=== PATIENT | male | born 1990 | race Caucasian/White ===

== ENCOUNTER 2017-02-07 01:14 | Emergency (ER) | payer SELFPAY ==
[2017-02-07] MEDS ORDERED: PROPOFOL INJ 200 MG/20 ML VIAL IV ONE (02:54)
--- NOTE | 2017-02-07 05:25 | ER Document Report ---
ED General - General Chief Complaint: Shoulder Injury Stated Complaint: POSSIBLE SHOULDER INJURY Notes: Patient is a 26-year-old male with past history of morbid obesity and a prior left shoulder dislocation who presents after dislocating his left shoulder. States that he was sleeping on a couch and woke up from sleep after apparently dislocating the shoulder. Does describe a constant, severe, throbbing pain to the left shoulder. States he is unable to perform range of motion and attempts at that worsen the pain. He has not tried anything for improvement of the pain. States this feels exactly the same as last time he dislocated his shoulder. He has not spoken to his primary care doctor regarding today's concerns. He denies any additional injuries or complaints. Denies any weakness or numbness in the affected left upper extremity. TRAVEL OUTSIDE OF THE [place] IN LAST 30 DAYS: No - Related Data Allergies/Adverse Reactions: No Known Allergies Allergy (Verified 02/07/17 01:28) Past Medical History - General Information source: Patient - Social History Smoking Status: Current Every Day Smoker Chew tobacco use (# tins/day): Yes Frequency of alcohol use: Occasional Drug Abuse: None Lives with: Family Family History: Reviewed & Not Pertinent Patient has suicidal ideation: No Patient has homicidal ideation: No Renal/ Medical History: Reports: Hx Kidney Stones. Denies: Hx Peritoneal Dialysis - Immunizations Hx Diphtheria, Pertussis, Tetanus Vaccination: Yes Review of Systems - Review of Systems Notes: Constitutional: Negative for fever. HENT: Negative for sore throat. Eyes: Negative for visual changes. Cardiovascular: Negative for chest pain. Respiratory: Negative for shortness of breath. Gastrointestinal: Negative for abdominal pain, vomiting or diarrhea. Genitourinary: Negative for dysuria. Musculoskeletal: Positive for left shoulder pain Skin: Negative for rash. Neurological: Negative for headaches, weakness or numbness. 10 point ROS negative except as marked above and in HPI. Physical Exam - Vital signs Vitals: Temp Pulse Resp BP Pulse Ox 98.1 F 103 H 18 145/105 H 97 02/07/17 01:20 02/07/17 01:20 02/07/17 01:20 02/07/17 01:20 02/07/17 01:20 Interpretation: Hypertensive, Tachycardic Notes: PHYSICAL EXAMINATION: GENERAL: Appears mildly uncomfortable but in no acute distress. HEAD: Atraumatic, normocephalic. EYES: Pupils equal round and reactive to light, extraocular movements intact, sclera anicteric, conjunctiva are normal. ENT: nares patent, oropharynx clear without exudates. Moist mucous membranes. NECK: Normal range of motion, supple without lymphadenopathy LUNGS: Breath sounds clear to auscultation bilaterally and equal. No wheezes rales or rhonchi. HEART: Regular rate and rhythm without murmurs ABDOMEN: Soft, nontender, normoactive bowel sounds. No guarding, no rebound. No masses appreciated. EXTREMITIES: Unable form range of motion with the left shoulder. There is an obvious anterior dislocation. NEUROLOGICAL: AIN, PIN, IO intact bilaterally. RMU sensation intact bilaterally PSYCH: Normal mood, normal affect. SKIN: Warm, Dry, normal turgor, no rashes or lesions noted. Course - Re-evaluation Re-evalutation: 02/07/17 05:24 Patient presents with a left anterior shoulder dislocation clinically present on exam. This was reduced under procedural sedation using propofol. Patient's arm was placed in a sling and reduction was confirmed on x-ray. He remained neurovascularly intact. No additional injuries.At this time will discharge with return precautions and follow-up recommendations. Verbal discharge instructions given a the bedside and opportunity for questions given. Medication warnings reviewed. Patient is in agreement with this plan and has verbalized understanding of return precautions and the need for primary care follow-up in the next 24-72 hours. - Vital Signs Vital signs: Temp Pulse Resp BP Pulse Ox 98.1 F 79 18 145/86 H 99 02/07/17 01:27 02/07/17 04:46 02/07/17 05:01 02/07/17 05:01 02/07/17 05:01 Procedures - Conscious Sedation Conscious sedation Time started: 04:10 Time completed: 04:26 Consent obtained: Yes Indication: Shoulder reducation Prior complications: Procedural sedation Normal healthy pt.: P1. - ASA Classification Airway Evaluation: Normal anatomy, Obese Mallampati Classification: Class 2 Used during procedure: Suction available, IV access obtained, Pulse ox on pt., media monitor on pt. Medications administered: Diprivan Reversal agents: None I personally performed/intraservice time: Sedation, Procedure, 30 min or less Complications: No - Joint Reduction/Fracture Care Left Shoulder Time completed: 04:32 Consent obtained: Yes Conscious sedation: Yes Pre-procedure NV exam: Yes Fracture: Other - Dislocation Manipulation comment: Direct humeral head pressure and downward traction Post-procedure NV exam: Yes Post-reduction x-ray: Joint reduced Reduction attempts: 1 Complications: No Discharge - Discharge Clinical Impression: Dislocation of left shoulder joint Qualifiers: Encounter type: initial encounter Qualified Code(s): S43.005A - Unspecified dislocation of left shoulder joint, initial encounter Condition: Good Disposition: HOME, SELF-CARE Additional Instructions: Your shoulder was dislocated today. This was reduced. Please wear the sling as needed for comfort. Follow-up with orthopedic surgery if you have recurrent shoulder dislocations. You should continue to take anti-inflammatories such as ibuprofen 600 mg every 6 hours for pain. Continue to apply ice to the area is much your able. Please return immediately if you develop weakness, numbness , spreading redness from the area, or any other symptoms that are concerning to you.
[2017-02-07 05:28] VITALS: BP 150/94
== END 2017-02-07 05:35 | disposition home or self-care (01) ==
LOC: ER 01:14
PROC: 0RSKXZZ Reposition Left Shoulder Joint, External Approach (ICD-10-PCS; principal; 2017-02-07)
DX: M24.412 Recurrent dislocation, left shoulder (principal); M25.512 Pain in left shoulder; E66.01 Morbid (severe) obesity due to excess calories; Z68.38 Body mass index [BMI] 38.0-38.9, adult; F17.200 Nicotine dependence, unspecified, uncomplicated
CPT/HCPCS: 99283; 73030; 23650; J2704

== ENCOUNTER 2017-03-16 17:07 | Emergency (ER) | payer SELFPAY ==
[2017-03-16 17:24] VITALS: BP 146/84
[2017-03-16] MEDS ORDERED: TETRACAINE HCL 0.5% OPH SOLN 2 ML OU ONE (17:46)
--- NOTE | 2017-03-16 17:51 | ER Document Report ---
HPI - HPI Patient complains to provider of: possible pinkeye Onset: This afternoon Onset/Duration: Sudden Pain Level: 3 Context: 26-year-old. Planing of itchy bilateral eyes for several days. When his looked at his eyes after he was rubbing them Ceftin and they looked really red and she wanted him to be checked for anxiety. No drainage. Recent upper respiratory infection. No fever or chills. No facial swelling. Associated Symptoms: None Exacerbated by: Denies Relieved by: Denies Similar symptoms previously: No Recently seen / treated by doctor: No - ROS ROS below otherwise negative: Yes Systems Reviewed and Negative: Yes All other systems reviewed and negative - DERM Skin Color: Normal Past Medical History - General Information source: Patient - Social History Smoking Status: Unknown if Ever Smoked Frequency of alcohol use: None Drug Abuse: None Family History: Reviewed & Not Pertinent Renal/ Medical History: Reports: Hx Kidney Stones. Denies: Hx Peritoneal Dialysis Surgical Hx: Negative - Immunizations Hx Diphtheria, Pertussis, Tetanus Vaccination: Yes Vertical Provider Document - CONSTITUTIONAL Agree With Documented VS: Yes - INFECTION CONTROL TRAVEL OUTSIDE OF THE [place] IN LAST 30 DAYS: No - HEENT HEENT: Normocephalic, PERRLA. negative: Conjuctival Injection Notes: No foreign body, no conjunctival injection, no for seen uptake, no preauricular lymph nodes. - NECK Neck: Supple. negative: Lymphadenopathy-Left, Lymphadenopathy-Right - RESPIRATORY Respiratory: Breath Sounds Normal, No Respiratory Distress O2 Sat by Pulse Oximetry: 97 - CARDIOVASCULAR Cardiovascular: Regular Rate, Regular Rhythm - MUSCULOSKELETAL/EXTREMETIES Musculoskeletal/Extremeties: EARNEST SCHROEDER - NEURO Level of Consciousness: Awake, Alert, Appropriate - DERM Integumentary: Warm, Dry, No Rash Course - Re-evaluation Re-evalutation: 03/16/17 18:18 left eye 20/25 right eye 20/30 with glasses - Vital Signs Vital signs: Temp Pulse Resp BP Pulse Ox 98.4 F 84 16 146/84 H 97 03/16/17 17:22 03/16/17 17:22 03/16/17 17:22 03/16/17 17:22 03/16/17 17:22 Discharge - Discharge Clinical Impression: Allergic conjunctivitis Qualifiers: Laterality: bilateral Qualified Code(s): H10.13 - Acute atopic conjunctivitis, bilateral Condition: Good Disposition: HOME, SELF-CARE Instructions: Conjunctivitis, Allergic, Use of Diphenhydramine Additional Instructions: Qpbq-cly-sdortes allergy eyedrops of your choice Alaway ([employer]ch [employer]), Claritin Eye ([employer]), Refresh Eye Itch Relief (Allergan), Visine All Day Itch Relief (Nevarez) and Zaditor (Novartis). see opthamologist if persists over the counter benadryl Please complete the patient satisfaction survey if you get one, and return it.. If you do not receive a survey, then you can go to the [facility] website, [email or web address] and place your comments about your very good care. Thank you very much. It was a pleasure being your medical provider today. Referrals: NATALIA CATES MD [ACTIVE STAFF] - Follow up as needed
== END 2017-03-16 18:58 | disposition home or self-care (01) ==
LOC: ER 17:07
DX: H10.13 Acute atopic conjunctivitis, bilateral (principal); H57.13 Ocular pain, bilateral
CPT/HCPCS: 99283

== ENCOUNTER 2017-12-05 17:40 | Emergency (ER) | payer OTHER, MEDICAID ==
[2017-12-05] MEDS ORDERED: HYDROMORPHONE HCL INJ/PF 2 MG/ML AMPULE IM ONE (17:54)
--- NOTE | 2017-12-05 17:55 | ER Document Report ---
ED General - General Chief Complaint: Shoulder Injury Stated Complaint: SHOULDER PAIN Time Seen by Provider: 12/05/17 17:42 TRAVEL OUTSIDE OF THE [place] IN LAST 30 DAYS: No - HPI Patient complains to provider of: Left shoulder pain 10/10 sharp in nature without radiation Onset: Just prior to arrival Onset/Duration: Sudden Severity: Severe Notes: Patient has lengthy history of left shoulder dislocations. 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 [place] acute onset of pain left shoulder. Patient is neurovascular intact distally. Has never had follow-up surgery performed - Related Data Allergies/Adverse Reactions: No Known Allergies Allergy (Verified 12/05/17 17:43) Past Medical History - Social History Smoking Status: Unknown if Ever Smoked Family History: Reviewed & Not Pertinent Renal/ Medical History: Reports: Hx Kidney Stones. Denies: Hx Peritoneal Dialysis - Immunizations Hx Diphtheria, Pertussis, Tetanus Vaccination: Yes Review of Systems - Review of Systems Constitutional: No symptoms reported EENT: No symptoms reported Cardiovascular: No symptoms reported Respiratory: No symptoms reported Gastrointestinal: No symptoms reported Genitourinary: No symptoms reported Male Genitourinary: No symptoms reported Musculoskeletal: No symptoms reported, Joint pain Skin: No symptoms reported Hematologic/Lymphatic: No symptoms reported Neurological/Psychological: No symptoms reported Physical Exam - Vital signs Vitals: Temp Pulse Resp BP Pulse Ox 99.1 F 96 18 148/105 H 96 12/05/17 17:47 12/05/17 17:47 12/05/17 17:47 12/05/17 17:47 12/05/17 17:47 Interpretation: Normal - General General appearance: Appears well, Alert - HEENT Head: Normocephalic, Atraumatic Eyes: Normal Pupils: PERRL - Respiratory Respiratory status: No respiratory distress Chest status: Nontender Breath sounds: Normal Chest palpation: Normal - Cardiovascular Rhythm: Regular Heart sounds: Normal auscultation Murmur: No - Abdominal Inspection: Normal Distension: No distension Bowel sounds: Normal Tenderness: Nontender Organomegaly: No organomegaly - Back Back: Normal, Nontender - Extremities General upper extremity: Normal inspection, Nontender, Normal color, Normal ROM , Normal temperature General lower extremity: Normal inspection, Nontender, Normal color, Normal ROM , Normal temperature, Normal weight bearing. No: Rahul's sign Shoulder: Dislocation - Neurological Neuro grossly intact: Yes Cognition: Normal Orientation: AAOx4 Farley Coma Scale Eye Opening: Spontaneous [place]ley Coma Scale Verbal: Oriented Faizan Coma Scale Motor: Obeys Commands Faizan Coma Scale Total: 15 Speech: Normal Motor strength normal: LUE, RUE, LLE, RLE Sensory: Normal - Psychological Associated symptoms: Normal affect, Normal mood - Skin Skin Temperature: Warm Skin Moisture: Dry Skin Color: Normal Course - Vital Signs Vital signs: Temp Pulse Resp BP Pulse Ox 99.1 F 96 18 148/105 H 96 12/05/17 17:47 12/05/17 17:47 12/05/17 17:47 12/05/17 17:47 12/05/17 17:47 Procedures - Joint Reduction/Fracture Care Left Shoulder Consent obtained: Yes Conscious sedation: No Pre-procedure NV exam: Yes Fracture: Closed
--- NOTE | 2017-12-05 18:07 | RADIOLOGY REPORT (SQ) ---
EXAM DESCRIPTION: 02/07/2017 COMPLETED DATE/TIME: 12/05/2017 5:56 pm REASON FOR STUDY: shoulder pain COMPARISON: 02/07/2017 and 04/21/2015 NUMBER OF VIEWS: Two views. TECHNIQUE: Internal rotation, external rotation, and Y view images acquired of the left shoulder. LIMITATIONS: None. FINDINGS: MINERALIZATION: Normal. BONES: Chronic Hill-Sachs deformity in the humeral head. Old left rib fractures. No acute fracture or dislocation. No worrisome bone lesions. JOINTS: Recurrent anterior dislocation. VISUALIZED LUNGS AND RIBS: No pneumothorax. No rib fracture. SOFT TISSUES: No radiopaque foreign body. OTHER: No other significant finding. IMPRESSION: 1. Anterior dislocation of the left shoulder with Hill-Sachs deformity in the humeral h ead. TECHNICAL DOCUMENTATION: JOB ID: [id number] [employer]- All Rights Reserved
[2017-12-05] MEDS ORDERED: HYDROMORPHONE HCL INJ/PF 2 MG/ML AMPULE IV ONE (18:46)
[2017-12-05] MEDS ORDERED: PROPOFOL INJ 200 MG/20 ML VIAL IV ONE (19:11)
--- NOTE | 2017-12-05 19:24 | ER Document Report ---
ED Extremity Problem, Upper - General Chief Complaint: Shoulder Injury Stated Complaint: SHOULDER PAIN Time Seen by Provider: 12/05/17 17:42 Notes: Patient is a 27-year-old male who comes emergency department for chief complaint of left shoulder dislocation. He states he has done this 3 times now , he was reaching behind his body to pull a cable down when he felt a sharp pain consistent with previous shoulder dislocations. He has not had surgery or orthopedic follow-up for his shoulder. He does not take any medications, denies any medical history other than orthopedic dislocations and right arm surgery. TRAVEL OUTSIDE OF THE [place] IN LAST 30 DAYS: No - Related Data Allergies/Adverse Reactions: No Known Allergies Allergy (Verified 12/05/17 17:43) Past Medical History - General Information source: Patient - Social History Smoking Status: Never Smoker Drug Abuse: None Lives with: Family Family History: Reviewed & Not Pertinent Patient has suicidal ideation: No Patient has homicidal ideation: No Renal/ Medical History: Reports: Hx Kidney Stones. Denies: Hx Peritoneal Dialysis Past Surgical History: Reports: Hx Orthopedic Surgery - Immunizations Hx Diphtheria, Pertussis, Tetanus Vaccination: Yes Review of Systems - Review of Systems Constitutional: No symptoms reported EENT: No symptoms reported Cardiovascular: No symptoms reported Respiratory: No symptoms reported Gastrointestinal: No symptoms reported Genitourinary: No symptoms reported Male Genitourinary: No symptoms reported Musculoskeletal: See HPI Skin: No symptoms reported Hematologic/Lymphatic: No symptoms reported Neurological/Psychological: No symptoms reported Physical Exam - Vital signs Vitals: Temp Pulse Resp BP Pulse Ox 99.1 F 96 18 148/105 H 96 12/05/17 17:47 12/05/17 17:47 12/05/17 17:47 12/05/17 17:47 12/05/17 17:47 Interpretation: Normal - General General appearance: Alert In distress: Mild - Patient appears mildly uncomfortable, no severe distress - HEENT Head: Normocephalic, Atraumatic Eyes: Normal Conjunctiva: Normal Extraocular movements intact: Yes Eyelashes: Normal Pupils: PERRL Mouth/Lips: Normal Mucous membranes: Normal Pharynx: Normal Neck: Normal - Respiratory Respiratory status: No respiratory distress Chest status: Nontender Breath sounds: Normal. No: Decreased air movement, Wheezing Chest palpation: Normal - Cardiovascular Rhythm: Regular. No: Tachycardia Heart sounds: Normal auscultation, S1 appreciated, S2 appreciated Murmur: No - Abdominal Inspection: Normal Distension: No distension Bowel sounds: Normal Tenderness: Nontender. No: Tender, Guarding - Back Back: Normal, Nontender. No: Tender - Extremities General upper extremity: Other - Left shoulder appears to be out of place. No severe swelling to the area. Area is tender. Normal distal pulse and sensation. Normal upper extremity exam otherwise. General lower extremity: Normal inspection, Nontender, Normal strength, Normal temperature - Neurological Neuro grossly intact: Yes Cognition: Normal Orientation: AAOx4 [place] Coma Scale Eye Opening: Spontaneous Faizan Coma Scale Verbal: Oriented [place] Coma Scale Motor: Obeys Commands Faizan Coma Scale Total: 15 Speech: Normal Motor strength normal: LUE, RUE, LLE, RLE Sensory: Normal - Psychological Associated symptoms: Normal affect, Normal mood - Skin Skin Temperature: Warm Skin Moisture: Dry Skin Color: Normal Course - Re-evaluation Re-evalutation: X-ray showing Hill-Sachs deformity and anterior dislocation of the shoulder. Discussed with patient, he has had good success with conscious sedation and reduction in the past. Propofol use previously with good results. Propofol was again used today after patient had initially received Dilaudid, excellent anesthesia achieved, easy reduction, shoulder immobilizer was placed. Reduction performed with Dr. Grant at bedside overseeing the conscious sedation aspect. Patient provided with symptom management, instructions, he states he will follow-up with orthopedics. Discussed return precautions. Patient states understanding and agreement. - Vital Signs Vital signs: Temp Pulse Resp BP Pulse Ox 99.1 F 101 H 19 138/75 H 97 12/05/17 17:47 12/05/17 19:52 12/05/17 20:30 12/05/17 20:30 12/05/17 20:30 Procedures - Conscious Sedation left shoulder reduction Time started: 07:35 Time completed: 07:45 Consent obtained: Yes Last meal: 7:30 AM Prior complications: Procedural sedation Airway Evaluation: Normal anatomy, Other - Tongue ring Mallampati Classification: Class 2 Used during procedure: Suction available, IV access obtained, Pulse ox on pt., monitoring manager on pt. Medications administered: Diprivan Reversal agents: None I personally performed/intraservice time: Sedation - sedation instructed by Dr. Grant at bedside, Procedure - single attempt, easy reduction, 30 min or less Complications: No - Immobilization left shoulder Pre-Proc Neuro Vasc Exam: Normal Immobilizer type: Shoulder immobilizer Performed by: Provider assisted, PCT Post-Proc Neuro Vasc Exam: Normal Alignment checked and good: Yes Discharge - Discharge Clinical Impression: Dislocation of left shoulder joint Qualifiers: Encounter type: initial encounter Qualified Code(s): S43.005A - Unspecified dislocation of left shoulder joint, initial encounter Condition: Stable Disposition: HOME, SELF-CARE Additional Instructions: Your x-ray shows an abnormality called a Hill-Sachs deformity along with the dislocation. Call the orthopedics referral listed tomorrow to perform a close follow-up and additional management. Wear the sling, ice the shoulder, take the medications only if needed for pain, return to the ED for any concerning symptoms, see additional instructions below. You've had a shoulder dislocation. Even after the shoulder is put back in place, careful care is needed to prevent further problems. As the shoulder dislocated, injury to the joint itself occurred. This must be allowed to heal. The usual treatment is a shoulder immobilizing sling. If this is your first dislocation, it must be left in place until the doctor allows you to remove it. This is important. Ice pack the shoulder frequently. One of the most important aspects of care for a shoulder dislocation is mobility exercises and strengthening exercises. You'll start these when it's safe to start moving the shoulder joint. Be sure to keep your follow-up appointments. If you develop numbness in the arm or hand, weakness of the hand muscles, arm swelling, or arm discoloration, call the doctor or return immediately. Prescriptions: Morphine Sulfate [Morphine Ir 15 Mg Tablet] 15 mg PO Q4HP PRN #12 tablet PRN Reason: Forms: Return to Work Referrals: STACI WOODY MD [ACTIVE STAFF] - Follow up tomorrow
[2017-12-05] MEDS ORDERED: HYDROCODONE/ACETAMINOPHEN 5-325 MG (6 TAB/ER DISP) PO PRN (20:13)
--- NOTE | 2017-12-05 20:18 | RADIOLOGY REPORT (SQ) ---
EXAM DESCRIPTION: SHOULDER LEFT 1 VIEW COMPLETED DATE/TIME: 12/05/2017 8:03 pm REASON FOR STUDY: post-reduction COMPARISON: 12/05/2017. NUMBER OF VIEWS: One view. TECHNIQUE: Frontal image acquired of the left shoulder following closed reduction. LIMITATIONS: None. FINDINGS: MINERALIZATION: Normal. BONES: No acute fracture or dislocation. No worrisome bone lesions. JOINTS: No dislocation. VISUALIZED LUNGS AND RIBS: No pneumothorax. No rib fracture. SOFT TISSUES: No radiopaque foreign body. OTHER: No other significant finding. IMPRESSION: SATISFACTORY POSITION OF THE HUMERAL HEAD FOLLOWING CLOSED REDUCTION OF THE GLENOHUMERAL JOINT DISLOCATION. TECHNICAL DOCUMENTATION: JOB ID: [id number] [employer]- All Rights Reserved
[2017-12-05 21:18] VITALS: BP 138/75
== END 2017-12-05 20:50 | disposition home or self-care (01) ==
LOC: ER 17:40
DX: M24.412 Recurrent dislocation, left shoulder (principal); M25.512 Pain in left shoulder
CPT/HCPCS: 99283; 96372; 99152; 96374; 73020; 73030; 23655; L3650; J1170; J2704

== ENCOUNTER 2017-12-12 02:44 | Emergency (ER) | payer MEDICAID, OTHER ==
--- NOTE | 2017-12-12 04:56 | RADIOLOGY REPORT (SQ) ---
EXAM DESCRIPTION: SHOULDER LEFT 2 OR MORE VIEWS CLINICAL HISTORY: fall COMPARISON: None. FINDINGS: 2 views of the left shoulder. Anterior inferior displacement of the humeral head relative to the glenoid compatible with anterior dislocation. No left-sided rib fracture or pneumothorax. No definite humeral fracture identified. IMPRESSION: 1. Anterior left shoulder dislocation.
[2017-12-12] MEDS ORDERED: NORMAL SALINE 1000 ML 1,000 ML IV ONE (05:16)
[2017-12-12] MEDS ORDERED: PROPOFOL INJ 200 MG/20 ML VIAL IV ONE (05:16)
--- NOTE | 2017-12-12 05:18 | ER Document Report ---
ED General - General Chief Complaint: Shoulder Pain Stated Complaint: SHOULDER INJURY Time Seen by Provider: 12/12/17 05:04 Notes: Patient is a 27-year-old male who presents with complaint of pain to left shoulder. He has a history of recurrent shoulder dislocations. Tonight he rolled over in bed and shoulder dislocated. This is fourth time he has dislocated his shoulder. This is a second time this week. No numbness or weakness to the hand. No other injuries or trauma. Less than was here he received propofol which gave good results. No adverse reaction to this. Patient has no other complaints at this time. TRAVEL OUTSIDE OF THE [place] IN LAST 30 DAYS: No - Related Data Allergies/Adverse Reactions: No Known Allergies Allergy (Verified 12/05/17 17:43) Past Medical History - Social History Smoking Status: Never Smoker Chew tobacco use (# tins/day): Yes Frequency of alcohol use: Occasional Drug Abuse: Marijuana Family History: Reviewed & Not Pertinent Patient has suicidal ideation: No Patient has homicidal ideation: No Renal/ Medical History: Reports: Hx Kidney Stones. Denies: Hx Peritoneal Dialysis Past Surgical History: Reports: Hx Orthopedic Surgery - Immunizations Hx Diphtheria, Pertussis, Tetanus Vaccination: Yes Review of Systems - Review of Systems Notes: My Normal Review Basic REVIEW OF SYSTEMS: CONSTITUTIONAL : Denies fever, chills, or sweats. Denies recent illness. RESPIRATORY: Denies cough, cold, or chest congestion. Denies shortness of breath, difficulty breathing, or wheezing. MUSCULOSKELETAL: Left shoulder pain. SKIN: Denies rash or skin lesions. NEUROLOGICAL: Denies sensory or motor loss. ALL OTHER SYSTEMS REVIEWED AND NEGATIVE. Physical Exam - Vital signs Vitals: Temp Pulse Resp BP Pulse Ox 98.5 F 90 16 129/91 H 100 12/12/17 03:07 12/12/17 03:07 12/12/17 03:07 12/12/17 03:07 12/12/17 03:07 - Notes Notes: General Appearance: Well nourished, alert, cooperative, no acute distress, mild obvious discomfort. Vitals: reviewed, See vital signs table. Eyes: PERRL, EOMI, Conjuctiva clear Mouth: No decreasd moisture Throat: No tonsillar inflammation, No airway obstruction, No lymphadenopathy Neck: Supple, no neck tenderness Lungs: No wheezing, No rales, No rhonci, No accessory muscle use, good air exchange bilaterally. Heart: Normal rate, Regular rythm, No murmur, no rub Extremities: good pulses in all extremities, obvious deformity left shoulder consistent with shoulder dislocation. Pain with any attempt of range of motion. Good distal sensation left hand. Good distal pulses. Normal capillary refill. Good strength in left hand. Skin: warm, dry, appropriate color, no rash Neuro: speech clear, oriented x 3, normal affect, responds appropriately to questions. Course - Re-evaluation Re-evalutation: 12/12/17 06:49 Patient shoulder is relocated. He tolerated procedure well. No complications during sedation or relocation of the shoulder. Patient talked at length about the need follow-up with orthopedist due to his frequent shoulder dislocations. Also type this up in his discharge instructions. Patient says that he does have a ride home and will not be driving being that he did receive sedation tonight. Patient will be discharged home. On reexamination patient has good capillary refill and good movement of his hand and good distal sensation. Dictation of this chart was performed using voice recognition software; therefore, there may be some unintended grammatical errors. - Vital Signs Vital signs: Temp Pulse Resp BP Pulse Ox 98.5 F 88 24 H 140/88 H 98 12/12/17 03:07 12/12/17 06:32 12/12/17 06:32 12/12/17 06:32 12/12/17 06:32 Procedures - Conscious Sedation Conscious sedation Consent obtained: Yes Prior complications: Procedural sedation Normal healthy pt.: P1. - ASA Classification Airway Evaluation: Normal anatomy Mallampati Classification: Class 1 Used during procedure: Suction available, IV access obtained, Pulse ox on pt., sample selector on pt. Medications administered: Diprivan I personally performed/intraservice time: Sedation, Procedure, 30 min or less Complications: No Notes: Patient recieved a total of 100mg of Propofol. Patient did not have any adverse reactions. No hypoxemia or hypotension. - Joint Reduction/Fracture Care left shoulder Consent obtained: Yes Conscious sedation: Yes Pre-procedure NV exam: Yes Fracture: Closed, Other - dislocation Manipulation comment: traction, counter traction Post-procedure NV exam: Yes Post-reduction x-ray: Joint reduced Reduction attempts: 1 Complications: No Discharge - Discharge Clinical Impression: Dislocation of left shoulder joint Qualifiers: Encounter type: initial encounter Qualified Code(s): S43.005A - Unspecified dislocation of left shoulder joint, initial encounter Condition: Good Disposition: HOME, SELF-CARE Additional Instructions: Shoulder Dislocation You've had a shoulder dislocation. Even after the shoulder is put back in place, careful care is needed to prevent further problems. As the shoulder dislocated, injury to the joint itself occurred. This must be allowed to heal. The usual treatment is a shoulder immobilizing sling. If this is your first dislocation, it must be left in place until the doctor allows you to remove it. This is important. Ice pack the shoulder frequently. One of the most important aspects of care for a shoulder dislocation is mobility exercises and strengthening exercises. You'll start these when it's safe to start moving the shoulder joint. Be sure to keep your follow-up appointments. If you develop numbness in the arm or hand, weakness of the hand muscles, arm swelling, or arm discoloration, call the doctor or return immediately. These follow-up with the orthopedic surgeon, Dr. Walden. Please call his office to make close follow-up appointment. Forms: Return to Work
--- NOTE | 2017-12-12 06:41 | RADIOLOGY REPORT (SQ) ---
EXAM DESCRIPTION: SHOULDER LEFT 2 OR MORE VIEWS CLINICAL HISTORY: 27 years, Male, post reduction COMPARISON: None. NUMBER OF VIEWS: 2 TECHNIQUE: Frontal and lateral views of the left shoulder. LIMITATIONS: None. FINDINGS: Interval reduction of left anterior shoulder dislocation. The shoulder is now in normal anatomic alignment. No definite fracture identified. No left-sided pneumothorax identified. IMPRESSION: The left shoulder is now in normal anatomic alignment following reduction. 2011 [employer]- All Rights Reserved
[2017-12-12 08:59] VITALS: BP 132/83
== END 2017-12-12 09:00 | disposition home or self-care (01) ==
LOC: ER 02:44
DX: M24.412 Recurrent dislocation, left shoulder (principal); Z72.0 Tobacco use
CPT/HCPCS: 99284; 96360; 99152; 73030; 23650; J7030; J2704

== ENCOUNTER 2017-12-20 12:03 | Emergency (ER) | payer OTHER, MEDICAID ==
--- NOTE | 2017-12-20 12:45 | ER Document Report ---
ED Medical Screen (RME) - General Chief Complaint: Shoulder Injury Stated Complaint: SHOULDER INJURY Time Seen by Provider: 12/20/17 12:43 Mode of Arrival: Ambulatory Information source: Patient Notes: 27-year-old male with 4 previous dislocations presents with complaints his left shoulder dislocated again. Patient denies any other injuries I have greeted and performed a rapid initial assessment of this patient. A comprehensive ED assessment and evaluation of the patient, analysis of test results and completion of the medical decision making process will be conducted by additional ED providers. PHYSICAL EXAMINATION: GENERAL: Well-appearing, well-nourished and in no acute distress. HEAD: Atraumatic, normocephalic. EYES: Pupils equal round extraocular movements intact, conjunctiva are normal. ENT: Nares patent NECK: Normal range of motion LUNGS: No respiratory distress Musculoskeletal: Left shoulder in sling NEUROLOGICAL: Normal speech, normal gait. PSYCH: Normal mood, normal affect. SKIN: Warm, Dry, normal turgor, no rashes or lesions noted. TRAVEL OUTSIDE OF THE [place] IN LAST 30 DAYS: No - Related Data Allergies/Adverse Reactions: No Known Allergies Allergy (Verified 12/05/17 17:43) Past Medical History - Social History Chew tobacco use (# tins/day): Yes - dip Frequency of alcohol use: Occasional Renal/ Medical History: Reports: Hx Kidney Stones. Denies: Hx Peritoneal Dialysis Past Surgical History: Reports: Hx Orthopedic Surgery - Immunizations Hx Diphtheria, Pertussis, Tetanus Vaccination: Yes Physical Exam - Vital signs Vitals: Temp Pulse Resp BP Pulse Ox 98.8 F 101 H 20 144/95 H 97 12/20/17 12:27 12/20/17 12:27 12/20/17 12:27 12/20/17 12:27 12/20/17 12:27 Course - Vital Signs Vital signs: Temp Pulse Resp BP Pulse Ox 98.8 F 101 H 20 144/95 H 97 12/20/17 12:27 12/20/17 12:27 12/20/17 12:27 12/20/17 12:27 12/20/17 12:27
--- NOTE | 2017-12-20 13:14 | RADIOLOGY REPORT (SQ) ---
EXAM DESCRIPTION: SHOULDER LEFT 2 OR MORE VIEWS COMPLETED DATE/TIME: 12/20/2017 1:02 pm REASON FOR STUDY: previous dislocation COMPARISON: 12/12/2017 NUMBER OF VIEWS: Three views. TECHNIQUE: Internal rotation, external rotation, and Y view images acquired of the left shoulder. LIMITATIONS: None. FINDINGS: MINERALIZATION: Normal. BONES: No acute fracture. JOINTS: Anterior dislocation is again identified. VISUALIZED LUNGS AND RIBS: No pneumothorax. No rib fracture. SOFT TISSUES: No radiopaque foreign body. OTHER: No other significant finding. IMPRESSION: Anterior dislocation is again identified. No fracture is seen. TECHNICAL DOCUMENTATION: JOB ID: [id number] [employer]- All Rights Reserved
[2017-12-20] MEDS ORDERED: KETAMINE HCL INJ 500 MG/10 ML VIAL IV ONE (14:01)
[2017-12-20] MEDS ORDERED: LORAZEPAM INJ 2 MG/1 ML VIAL IV ONE (14:01)
--- NOTE | 2017-12-20 14:03 | ER Document Report ---
ED Extremity Problem, Upper - General Mode of Arrival: Ambulatory Information source: Patient TRAVEL OUTSIDE OF THE [place] IN LAST 30 DAYS: No <WILLY VILLA - Last Filed: 12/20/17 19:48> <KIRSTEN ESPINOZA - Last Filed: 12/20/17 19:52> - General Chief Complaint: Shoulder Injury Stated Complaint: SHOULDER INJURY Time Seen by Provider: 12/20/17 12:43 Notes: Patient is a 27-year-old male who presents to the emergency department today with complaints of left shoulder pain. Patient states that he has dislocated his left shoulder multiple times in the past including on December 05, December 12, and then again today. 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 Patient states he has not followed up with orthopedic surgery because he "does not have the money and does not have insurance". Patient complains of some numbness and tingling in his left hand and arm. Patient denies any nausea or vomiting. (WILLY VILLA) - Related Data Allergies/Adverse Reactions: No Known Allergies Allergy (Verified 12/05/17 17:43) Past Medical History - General Information source: Patient - Social History Smoking Status: Never Smoker Cigarette use (# per day): No Chew tobacco use (# tins/day): Yes - dip Frequency of alcohol use: Social Drug Abuse: None Lives with: Family Family History: Reviewed & Not Pertinent Patient has suicidal ideation: No Patient has homicidal ideation: No - Past Medical History Cardiac Medical History: Reports: Hx Hypertension - d/c meds per MD in 2003 Renal/ Medical History: Reports: Hx Kidney Stones Past Surgical History: Reports: Hx Orthopedic Surgery - right arm - Immunizations Hx Diphtheria, Pertussis, Tetanus Vaccination: Yes <WILLY VILLA - Last Filed: 12/20/17 19:48> - Social History Smoking Education Provided: Yes <KIRSTEN ESPINOZA - Last Filed: 12/20/17 19:52> Review of Systems - Review of Systems Constitutional: No symptoms reported EENT: No symptoms reported Cardiovascular: No symptoms reported Respiratory: No symptoms reported Gastrointestinal: denies: Nausea, Vomiting Genitourinary: No symptoms reported Male Genitourinary: No symptoms reported Musculoskeletal: See HPI, Joint pain - left shoulder, Deformity Skin: No symptoms reported Hematologic/Lymphatic: No symptoms reported Neurological/Psychological: No symptoms reported -: Yes All other systems reviewed and negative <WILLY VILLA - Last Filed: 12/20/17 19:48> Physical Exam <WILLY VILLA - Last Filed: 12/20/17 19:48> <KIRSTEN ESPINOZA - Last Filed: 12/20/17 19:52> - Vital signs Vitals: Temp Pulse Resp BP Pulse Ox 98.8 F 101 H 20 144/95 H 97 12/20/17 12:27 12/20/17 12:27 12/20/17 12:27 12/20/17 12:27 12/20/17 12:27 - Notes Notes: PHYSICAL EXAM GENERAL: Alert, interacts well. In moderate distress secondary to left shoulder pain. HEAD: Normocephalic, atraumatic. EYES: Pupils equal, round, and reactive to light. Extraocular movements intact. ENT: Oral mucosa moist, tongue midline. NECK: Full range of motion. Supple. Trachea midline. LUNGS: No respiratory distress. ABDOMEN: Non-distended. EXTREMITIES: Left shoulder deformity, anterior dislocation. 2/4 radial pulse distally. NEUROLOGICAL: Alert and oriented x3. Normal speech. Sensation intact over Sellers patch. PSYCH: Normal affect, normal mood. SKIN: Warm, dry, normal turgor. No rashes or lesions noted. (WILLY VILLA) Course <WILLY VILLA - Last Filed: 12/20/17 19:48> <KIRSTEN ESPINOZA - Last Filed: 12/20/17 19:52> - Re-evaluation Re-evalutation: 12/20/17 16:09 Attempted reduction without sedation, this was unsuccessful, patient kept having muscle spasms and jumping. Patient was given Ativan and ketamine for sedation, tolerated well, patient's shoulder was reduced with minimal effort. Postreduction x-ray shows normal alignment and no fracture. Patient was placed in a shoulder immobilizer and discharged home. Recommend follow-up with orthopedic surgery. (KIRSTEN ESPINOZA) - Vital Signs Vital signs: Temp Pulse Resp BP Pulse Ox 98.8 F 101 H 21 H 135/90 H 100 12/20/17 12:27 12/20/17 12:27 12/20/17 16:31 12/20/17 16:31 12/20/17 16:31 Procedures <WILLY VILLA - Last Filed: 12/20/17 19:48> - Conscious Sedation Conscious sedation Time started: 15:13 Time completed: 16:10 Consent obtained: Yes Indication: Left shoulder dislocation Last meal: 10:30 AM Prior complications: Procedural sedation Normal healthy pt.: P1. - ASA Classification Airway Evaluation: Normal anatomy, Obese Mallampati Classification: Class 2 Used during procedure: Suction available, IV access obtained, Pulse ox on pt., nursing director on pt. Medications administered: Ketamine, Other - Ativan Reversal agents: None I personally performed/intraservice time: Sedation, Procedure, 46-60 min Complications: No - Immobilization Left Shoulder Pre-Proc Neuro Vasc Exam: Normal Immobilizer type: Shoulder immobilizer Performed by: Provider Post-Proc Neuro Vasc Exam: Normal, Unchanged from pre-exam Alignment checked and good: Yes - Joint Reduction/Fracture Care Left Shoulder Consent obtained: Yes Conscious sedation: Yes Pre-procedure NV exam: Yes Manipulation comment: left shoulder Post-reduction x-ray: Joint reduced, No fracture seen Reduction attempts: 1 Complications: No <KIRSTEN ESPINOZA - Last Filed: 12/20/17 19:52> - Conscious Sedation Conscious sedation Notes: Reduced without difficulty, minimal traction needed. Placed in a shoulder immobilizer. (KIRSTEN ESPINOZA) Discharge <DAISYWILLY - Last Filed: 12/20/17 19:48> <KIRSTEN ESPINOZA - Last Filed: 12/20/17 19:52> - Discharge Clinical Impression: Recurrent dislocation, left shoulder, Tobacco abuse, Tobacco abuse counseling Hypertension Qualifiers: Hypertension type: essential hypertension Qualified Code(s): I10 - Essential ( primary) hypertension Condition: Stable Disposition: HOME, SELF-CARE Instructions: Shoulder Dislocation ([facility]) Additional Instructions: Please see your primary care physician and consider seeing an orthopedic surgeon. You may need surgery to tighten up the shoulder joint again. You must keep your sling on for the next 2 weeks while at work. Forms: Elevated Blood Pressure, Smoking Cessation Education, Return to Work Referrals: STACI WOODY MD [ACTIVE STAFF] - Follow up in 3-5 days Scribe Attestation: 12/20/17 19:52 I personally performed the services described in the documentation, reviewed and edited the documentation which was dictated to the scribe in my presence, and it accurately records my words and actions. (KIRSTEN ESPINOZA) Scribe Documentation - Scribe Written by Dereje:: Dereje Hartmann, 12/20/2017 1838 acting as scribe for :: Makayla <WILLY VILLA - Last Filed: 12/20/17 19:48>
[2017-12-20] MEDS ORDERED: MORPHINE SULFATE 10 MG/ML INJ IV ONE (14:32)
[2017-12-20] MEDS ORDERED: ONDANSETRON HCL INJ/PF 4 MG/2 ML SDV IV ONE (15:01)
[2017-12-20] MEDS ORDERED: ONDANSETRON HCL INJ/PF 4 MG/2 ML SDV ONE (15:02)
--- NOTE | 2017-12-20 15:52 | RADIOLOGY REPORT (SQ) ---
EXAM DESCRIPTION: SHOULDER LEFT 1 VIEW COMPLETED DATE/TIME: 12/20/2017 3:41 pm REASON FOR STUDY: post-reduction COMPARISON: Left shoulder films 12/20/2017, 10/12/2018 NUMBER OF VIEWS: AP view TECHNIQUE: AP view images acquired of the left shoulder. LIMITATIONS: None. FINDINGS: Single AP view is submitted post closed reduction of an anterior left glenohumeral disloca tion. Grossly normal alignment on the AP view. Multiple old healed posterior left rib fractures. N o humeral head, scapula, or clavicle fracture. IMPRESSION: No dislocation. TECHNICAL DOCUMENTATION: JOB ID: [id number] [employer]- All Rights Reserved
[2017-12-20 16:36] VITALS: BP 135/90
== END 2017-12-20 17:26 | disposition home or self-care (01) ==
LOC: ER 12:03
DX: M24.412 Recurrent dislocation, left shoulder (principal); M25.512 Pain in left shoulder; R20.0 Anesthesia of skin; R20.2 Paresthesia of skin; I10 Essential (primary) hypertension; Z72.0 Tobacco use; Z71.6 Tobacco abuse counseling
CPT/HCPCS: 99283; 99153; 99152; 96374; 96375; 73020; 73030; 23650; J3490; J2270; J2060; J2405

== ENCOUNTER 2017-12-23 22:42 | Emergency (ER) | payer MEDICAID, OTHER ==
[2017-12-24] MEDS ORDERED: OXYCODONE-ACETAMINOPHEN 5-325 MG TABLET PO ONE (01:44)
--- NOTE | 2017-12-24 01:45 | ER Document Report ---
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 He dislocated his left shoulder a few days ago and is wearing a sling. He does not think he injured his right arm at the same time but he is not sure. He denies any head injuries, denies any other locations of pain. He states he is not currently on any medications. Past Medical History - General Information source: Patient - Social History Smoking Status: Never Smoker Drug Abuse: None Lives with: Alone Family History: Reviewed & Not Pertinent - Past Medical History Cardiac Medical History: Reports: Hx Hypertension - d/c meds per MD in 2003 Renal/ Medical History: Reports: Hx Kidney Stones. Denies: Hx Peritoneal Dialysis Past Surgical History: Reports: Hx Orthopedic Surgery - right arm - Immunizations Hx Diphtheria, Pertussis, Tetanus Vaccination: Yes Vertical Provider Document - CONSTITUTIONAL General Appearance: WD/WN, No Apparent Distress - INFECTION CONTROL TRAVEL OUTSIDE OF THE [place] IN LAST 30 DAYS: No - HEENT HEENT: Atraumatic, Normocephalic - NECK Neck: Normal Inspection - RESPIRATORY Respiratory: Breath Sounds Normal, No Respiratory Distress O2 Sat by Pulse Oximetry: 98 - CARDIOVASCULAR Cardiovascular: Regular Rate, Regular Rhythm - GI/ABDOMEN Gastrointestinal: Abdomen Soft, Abdomen Non-Tender - MUSCULOSKELETAL/EXTREMETIES Musculoskeletal/Extremeties: Tender - Patient tender with palpation over the left lateral epicondyle area extending up the proximal forearm slightly. Range of motion of the elbow intact. Significantly worse pain with pronation movement. No erythema or swelling at the joint. Normal wrist, hand, shoulder exam. Normal distal neurovascular exam. - NEURO Level of Consciousness: Awake, Alert, Appropriate Motor/Sensory: No Motor Deficit, No Sensory Deficit Course - Re-evaluation Re-evalutation: Patient wearing a sling on the left arm/shoulder. X-ray shows no concerning a normality with the elbow. Patient has pain on examination but his examination is very suggestive of lateral epicondylitis. Discussed this with patient in detail. He asks for another sling for the arm, states it makes her much more comfortable and he tried wearing his left sling on his right arm already with improvement. He was provided with this. - Vital Signs Vital signs: Temp Pulse Resp BP Pulse Ox 98.8 F 87 18 125/91 H 98 12/23/17 23:44 12/23/17 23:44 12/23/17 23:44 12/23/17 23:44 12/23/17 23:44 Procedures - Immobilization right arm Pre-Proc Neuro Vasc Exam: Normal Immobilizer type: Sling Performed by: RN Post-Proc Neuro Vasc Exam: Normal Alignment checked and good: Yes Discharge - Discharge Clinical Impression: Right arm pain Lateral epicondylitis Qualifiers: Laterality: right Qualified Code(s): M77.11 - Lateral epicondylitis, right elbow Condition: Stable Disposition: HOME, SELF-CARE Additional Instructions: Your examination is consistent with lateral epicondylitis, tennis elbow. For the arm to recover, rest, apply ice to your arm 3 4 times a day for 10-15 minutes, take the naproxen, use the sling if desired but take out frequently to perform range of motion with your arm and shoulder. The x-ray does not show any concerning a normality. Follow-up with orthopedics referral for additional evaluation and management. Return to the emergency department for any concerning worsening symptoms including severe swelling or redness of the area. Prescriptions: Naproxen 500 mg PO BID #20 tablet Forms: Return to Work
--- NOTE | 2017-12-24 05:45 | RADIOLOGY REPORT (SQ) ---
EXAM DESCRIPTION: ELBOW RIGHT AP/LAT CLINICAL HISTORY: pain COMPARISON: None. FINDINGS: 2 views of the right elbow. No acute fracture or dislocation. No definite joint effusion. Normal osseous mineralization. IMPRESSION: No acute fracture or dislocation.
[2017-12-24] MEDS ORDERED: HYDROCODONE/ACETAMINOPHEN 5-325 MG (6 TAB/ER DISP) PO PRN (06:05)
[2017-12-24 06:22] VITALS: BP 136/86
== END 2017-12-24 06:22 | disposition home or self-care (01) ==
LOC: ER 22:42
DX: M77.11 Lateral epicondylitis, right elbow (principal); I10 Essential (primary) hypertension; Z98.890 Other specified postprocedural states
CPT/HCPCS: 99283

== ENCOUNTER 2018-01-01 07:32 | Emergency (ER) | payer MEDICAID ==
--- NOTE | 2018-01-01 08:24 | RADIOLOGY REPORT (SQ) ---
EXAM DESCRIPTION: SHOULDER LEFT 2 OR MORE VIEWS COMPLETED DATE/TIME: 01/01/2018 8:14 am REASON FOR STUDY: dislocation/shoulder droop COMPARISON: 12/20/2017. NUMBER OF VIEWS: Three views. TECHNIQUE: Internal rotation, external rotation, and Y view images acquired of the left shoulder. LIMITATIONS: None. FINDINGS: MINERALIZATION: Normal. BONES: Anterior or subcortical dislocation left shoulder. No associated fracture. JOINTS: No dislocation. VISUALIZED LUNGS AND RIBS: No pneumothorax. No rib fracture. SOFT TISSUES: No radiopaque foreign body. OTHER: No other significant finding. IMPRESSION: Anterior dislocation of left shoulder. Otherwise, no fractures seen. TECHNICAL DOCUMENTATION: JOB ID: [id number] 2010 [employer]- All Rights Reserved
[2018-01-01] MEDS ORDERED: MIDAZOLAM 2 MG/2 ML INJ IV ONE ×2 (08:30→09:17)
[2018-01-01] MEDS ORDERED: KETAMINE HCL INJ 500 MG/10 ML VIAL IV ONE ×2 (08:30→11:04)
--- NOTE | 2018-01-01 10:35 | RADIOLOGY REPORT (SQ) ---
EXAM DESCRIPTION: SHOULDER LEFT 1 VIEW COMPLETED DATE/TIME: 01/01/2018 10:03 am REASON FOR STUDY: post reduction COMPARISON: None. NUMBER OF VIEWS: Three views. TECHNIQUE: Internal rotation, external rotation, and Y view images acquired of the left shoulder. LIMITATIONS: None. FINDINGS: MINERALIZATION: Normal. BONES: Interval reduction of anterior dislocation. JOINTS: No dislocation. VISUALIZED LUNGS AND RIBS: No pneumothorax. Old healed old left 3rd rib fracture posterolaterally. Synostosis posterior left 4th and 5th ribs. SOFT TISSUES: No radiopaque foreign body. OTHER: No other significant finding. IMPRESSION: Interval reduction of anterior dislocation left shoulder. TECHNICAL DOCUMENTATION: JOB ID: [id number] 2010 [employer]- All Rights Reserved
--- NOTE | 2018-01-01 11:22 | ER Document Report ---
ED Extremity Problem, Upper - General TRAVEL OUTSIDE OF THE [place] IN LAST 30 DAYS: No <DOLORES YU A - Last Filed: 01/01/18 11:20> <PERICOLINCOLN - Last Filed: 01/01/18 16:28> - General Chief Complaint: Shoulder Pain Stated Complaint: LEFT SHOULDER INJURY Time Seen by Provider: 01/01/18 08:23 - Related Data Allergies/Adverse Reactions: No Known Allergies Allergy (Verified 01/01/18 07:34) Past Medical History - Social History Smoking Status: Never Smoker Chew tobacco use (# tins/day): Yes Frequency of alcohol use: Occasional Drug Abuse: None Family History: Reviewed & Not Pertinent Patient has suicidal ideation: No Patient has homicidal ideation: No - Past Medical History Cardiac Medical History: Reports: Hx Hypertension - d/c meds per MD in 2003 Renal/ Medical History: Reports: Hx Kidney Stones. Denies: Hx Peritoneal Dialysis Past Surgical History: Reports: Hx Orthopedic Surgery - right arm - Immunizations Hx Diphtheria, Pertussis, Tetanus Vaccination: Yes <DOLORES YU - Last Filed: 01/01/18 11:20> - Vital signs Vitals: Temp Pulse Resp BP Pulse Ox 98.9 F 90 16 141/94 H 96 01/01/18 07:43 01/01/18 07:43 01/01/18 07:43 01/01/18 07:43 01/01/18 07:43 - Vital Signs Vital signs: Temp Pulse Resp BP Pulse Ox 98.9 F 90 11 L 139/103 H 98 01/01/18 07:43 01/01/18 10:42 01/01/18 11:16 01/01/18 11:16 01/01/18 11:16 Procedures - Conscious Sedation Conscious sedation Time started: 09:11 Time completed: 09:30 Consent obtained: Yes Indication: Shoulder reduction Last meal: Night prior to arrival Prior complications: Procedural sedation Normal healthy pt.: P1. - ASA Classification Airway Evaluation: Normal anatomy - Patient does have a hays Mallampati Classification: Class 2 Used during procedure: Suction available, IV access obtained, Pulse ox on pt., equipment monitor phototypesetting on pt. Medications administered: Versed, Ketamine Reversal agents: None I personally performed/intraservice time: Sedation, 30 min or less Complications: No <[place] - Last Filed: 01/01/18 16:28> Discharge <DOLORES YU - Last Filed: 01/01/18 11:20> <[place] - Last Filed: 01/01/18 16:28> - Discharge Clinical Impression: reduction of shoulder dislocation Shoulder dislocation Qualifiers: Encounter type: subsequent encounter Laterality: left Qualified Code(s): S43.005D - Unspecified dislocation of left shoulder joint, subsequent encounter Condition: Good Disposition: HOME, SELF-CARE Instructions: Shoulder Dislocation ([facility]), Sling as Treatment ([facility]) Additional Instructions: Shoulder Dislocation You've had a shoulder dislocation. Even after the shoulder is put back in place, careful care is needed to prevent further problems. As the shoulder dislocated, injury to the joint itself occurred. This must be allowed to heal. The usual treatment is a shoulder immobilizing sling. If this is your first dislocation, it must be left in place until the doctor allows you to remove it. This is important. Ice pack the shoulder frequently. One of the most important aspects of care for a shoulder dislocation is mobility exercises and strengthening exercises. You'll start these when it's safe to start moving the shoulder joint. Be sure to keep your follow-up appointments. If you develop numbness in the arm or hand, weakness of the hand muscles, arm swelling, or arm discoloration, call the doctor or return immediately. Please follow up with the Orthoped[facility] [address] [place] [id number] Return immediately for any new or worsening symptoms. Follow up with primary care provider, call tomorrow to make followup appointment. Referrals: STACI WOODY MD [ACTIVE STAFF] - Follow up in 3-5 days
[2018-01-01 11:49] VITALS: BP 139/103
--- NOTE | 2018-01-01 18:15 | ER Document Report ---
ED Extremity Problem, Upper - General Chief Complaint: Shoulder Pain Stated Complaint: LEFT SHOULDER INJURY Time Seen by Provider: 01/01/18 08:23 Mode of Arrival: Ambulatory Information source: Patient TRAVEL OUTSIDE OF THE [place] IN LAST 30 DAYS: No - HPI Notes: 19-year-old male presents today with complaints of left sided shoulder pain, chronic history of left shoulder dislocation. Reports he woke up with his shoulder dislocated. Reports pain is 8 out of 10, throbbing achy. Patient is in a splint at this time. Has not tried any [id number] medications for this pain. Eating and drinking without issues. Denies any numbness or tingling bilateral upper or lower extremities. Denies any trauma. Patient was advised to follow-up with payroll tax specialist after the last time he was here for shoulder dislocation. Patient states he did not follow-up because he does not have the finances to see an payroll tax specialist. Denies any chest pain, shortness of breath, nausea, vomiting, blurred vision, double vision, loss of vision, abdominal pain, diarrhea. - Related Data Allergies/Adverse Reactions: No Known Allergies Allergy (Verified 01/01/18 07:34) Past Medical History - General Information source: Patient - Social History Smoking Status: Never Smoker Chew tobacco use (# tins/day): Yes Frequency of alcohol use: Occasional Drug Abuse: None Family History: Reviewed & Not Pertinent Patient has suicidal ideation: No Patient has homicidal ideation: No - Past Medical History Cardiac Medical History: Reports: Hx Hypertension - d/c meds per MD in 2003 Renal/ Medical History: Reports: Hx Kidney Stones. Denies: Hx Peritoneal Dialysis Past Surgical History: Reports: Hx Orthopedic Surgery - right arm - Immunizations Hx Diphtheria, Pertussis, Tetanus Vaccination: Yes Review of Systems - Review of Systems Constitutional: No symptoms reported EENT: No symptoms reported Cardiovascular: No symptoms reported Respiratory: No symptoms reported Gastrointestinal: No symptoms reported Genitourinary: No symptoms reported Male Genitourinary: No symptoms reported Musculoskeletal: No symptoms reported Skin: No symptoms reported Hematologic/Lymphatic: No symptoms reported Neurological/Psychological: No symptoms reported Physical Exam - Vital signs Vitals: Temp Pulse Resp BP Pulse Ox 98.9 F 90 16 141/94 H 96 01/01/18 07:43 01/01/18 07:43 01/01/18 07:43 01/01/18 07:43 01/01/18 07:43 Interpretation: Normal - General General appearance: Appears well In distress: None - Respiratory Respiratory status: No respiratory distress Chest status: Nontender Breath sounds: Normal Chest palpation: Normal - Cardiovascular Rhythm: Regular Heart sounds: Normal auscultation Murmur: No Normal capillary refill: No - Extremities General lower extremity: Normal inspection, Nontender, Normal strength, Normal temperature Shoulder: Dislocation - left shoulder. Distal pulses +2 bilateral upper extremities. Right shoulder normal. Sensory function bilateral upper extremities equally. Cap refill less than 3 seconds bilaterally in upper extremities. Arm: Normal Elbow: Normal Forearm: Normal Wrist: Normal Hand: Normal - Neurological Neuro grossly intact: Yes Cognition: Normal Orientation: AAOx4 Faizan Coma Scale Verbal: Oriented Motor strength normal: LUE - Limited range of motion due to dislocation of left shoulder. Postreduction, patient has full range of motion of shoulder, full motor and sensory function, RUE, LLE, RLE Additional motor exam normals: Equal director personal - . Biceps - Reflex grade: 2 = Normal Triceps - Reflex grade: 2 = Normal - Psychological Associated symptoms: Normal affect - Skin Skin Temperature: Warm Skin Moisture: Dry Skin Color: Normal Course - Re-evaluation Re-evalutation: 01/01/18 18:[address] Arnol Daigle regarding this patient. Dr. Daigle at bedside vision anterior left shoulder reduction. Reduction completed without incident. Postreduction films showed left shoulder was reduced. Patient brought back to his baseline after conscious sedation prior to discharge. Patient given (2)15 minute assessments to ensure that patient is safe to go home after conscious sedation. Discussed with patient that he needs to follow- up with payroll tax specialist due to having chronic shoulder dislocations. Patient verbalized an understanding and agree with plan of care. Patient was discharged home after a thorough assessment was done to make sure he was back to his baseline. see Dr. Daigle's note for conscious sedation - Vital Signs Vital signs: Temp Pulse Resp BP Pulse Ox 98.9 F 90 11 L 139/103 H 98 01/01/18 07:43 01/01/18 10:42 01/01/18 11:16 01/01/18 11:16 01/01/18 11:16 Procedures - Joint Reduction/Fracture Care Left Shoulder Consent obtained: Yes Conscious sedation: Yes - see Dr. Arnol Daigle's note. Pre-procedure NV exam: Yes Fracture: No: Open, Closed, Other Manipulation comment: External rotation maneuver used to reduce left shoulder Post-procedure NV exam: Yes Reduction attempts: 1 Complications: No Notes: 01/01/18 18:15 Procedure done without incident. Post reduction film taken. Patient placed in sling. Patient brought back to baseline before he was discharged. Patient given orthopedic follow-up referral. Discharge - Discharge Clinical Impression: reduction of shoulder dislocation Shoulder dislocation Qualifiers: Encounter type: subsequent encounter Laterality: left Qualified Code(s): S43.005D - Unspecified dislocation of left shoulder joint, subsequent encounter Condition: Good Disposition: HOME, SELF-CARE Instructions: Shoulder Dislocation ([facility]), Sling as Treatment ([facility]) Additional Instructions: Shoulder Dislocation You've had a shoulder dislocation. Even after the shoulder is put back in place, careful care is needed to prevent further problems. As the shoulder dislocated, injury to the joint itself occurred. This must be allowed to heal. The usual treatment is a shoulder immobilizing sling. If this is your first dislocation, it must be left in place until the doctor allows you to remove it. This is important. Ice pack the shoulder frequently. One of the most important aspects of care for a shoulder dislocation is mobility exercises and strengthening exercises. You'll start these when it's safe to start moving the shoulder joint. Be sure to keep your follow-up appointments. If you develop numbness in the arm or hand, weakness of the hand muscles, arm swelling, or arm discoloration, call the doctor or return immediately. Please follow up with the Orthoped[facility] [address] [place] [phone] Return immediately for any new or worsening symptoms. Follow up with primary care provider, call tomorrow to make followup appointment. Referrals: STACI WOODY MD [ACTIVE STAFF] - Follow up in 3-5 days
== END 2018-01-01 11:30 | disposition home or self-care (01) ==
LOC: ER 07:32
DX: M24.412 Recurrent dislocation, left shoulder (principal); I10 Essential (primary) hypertension; Z72.0 Tobacco use
CPT/HCPCS: 23650; 99284; 99153; 99152; 73020; 73030; L3650; J2250; J3490